=== PATIENT | female | born 1955 | race Caucasian/White ===

== ENCOUNTER 2023-09-12 11:05 | Emergency (ER) | payer MEDICARE, BC ==
[~2023-09-12] VITALS: Ht 156.2 cm; Wt 127.3 kg
[2023-09-12] MEDS: ketorolac tromethamine 15mg/ml inj. IM ONE ×2 (11:28→12:20)
[2023-09-12] MEDS ORDERED: CYCL-1 PO (12:13)
[2023-09-12 12:24] VITALS: BP 147/69; PULSE 68; RESP 16; TEMP 98.6; O2SAT 98
== END 2023-09-12 12:29 | disposition home or self-care (01) ==
LOC: ER 11:06
DX: G89.29 Other chronic pain (principal); M54.2 Cervicalgia; M25.512 Pain in left shoulder; M79.602 Pain in left arm; Z88.2 Allergy status to sulfonamides
CPT/HCPCS: 72125; 96372; 99285; J1885

== ENCOUNTER 2024-01-23 13:16 | Outpatient (CLI) | payer MEDICARE, BC ==
[~2024-01-23 13:16] MED LIST: CYCL-1 PO
[2024-01-23 14:26] LABS: BASOPHILS # (AUTO) 0.1 X10'3 (0-0.2); BASOPHILS % (AUTO) 0.6 % (0-1); EOSINOPHILS # (AUTO) 0.4 X10'3 (0-0.9); EOSINOPHILS % (AUTO) 4.5 % (0-6); HEMATOCRIT 37.8 % (35.0-45.0); HEMOGLOBIN 12.3 g/dl (12.0-16.0); LYMPHOCYTES # (AUTO) 1.6 X10'3 (1.1-4.8); LYMPHOCYTES % (AUTO) 16.3 % (21-51); MEAN CORPUSCULAR HEMOGLOBIN 28.7 PG (27.0-31.0); MEAN CORPUSCULAR HGB CONC 32.5 g/dL (33.0-36.5); MEAN CORPUSCULAR VOLUME 88.6 FL (78-98); MEAN PLATELET VOLUME 11.3 FL (7.4-10.4); MONOCYTES # (AUTO) 0.4 X10'3 (0-0.9); MONOCYTES % (AUTO) 4.4 % (2-12); NEUTROPHILS # (AUTO) 7.3 X10'3 (1.8-7.7); NEUTROPHILS % (AUTO) 74.2 % (42-75); PLATELET COUNT 215 X10'3 (140-440); RED BLOOD COUNT 4.27 X10'6 (4.20-5.60); RED CELL DISTRIBUTION WIDTH 14.3 % (11.5-14.5); WHITE BLOOD COUNT 9.9 X10'3 (4.5-11.0)
[2024-01-23 14:31] LABS: APTT 30 SECONDS (22-32); PROTHROMBIN TIME 10.6 SECONDS (9.0-12.0)
[2024-01-23 14:32] LABS: ALBUMIN 3.8 G/DL (3.4-5.0); ANION GAP 5 (8-16); BLOOD UREA NITROGEN 17 MG/DL (7-18); BUN/CREATININE RATIO 12.1 (10.0-20.0); CALCIUM 9.4 MG/DL (8.5-10.1); CHLORIDE 103 MMOL/L (99-107); CHOL/HDL RATIO 2.2 (0.00-4.99); CHOLESTEROL 143 MG/DL (0-200); GLUCOSE 104 MG/DL (70-104); HDL CHOLESTEROL 64 MG/DL (35-60); LDL CHOLESTEROL 61 MG/DL (50-100); POTASSIUM 4.3 MMOL/L (3.5-5.1); SODIUM 138 MMOL/L (135-145); TRIGLYCERIDES 87 MG/DL (20-135); eGFR 37 ML/MIN
== END 2024-01-23 23:59 | disposition home or self-care (01) ==
LOC: RAD 13:16
PROVIDERS: ATTEND Internal Medicine Interventional Cardiology
DX: E78.5 Hyperlipidemia, unspecified (principal); R06.02 Shortness of breath; I10 Essential (primary) hypertension
CPT/HCPCS: 80048; 80061; 85025; 85610; 85730

== ENCOUNTER 2024-01-27 12:12 | Day surgery (SDC) | payer MEDICARE, BC ==
[2024-01-27] VITALS (8 sets, daily range): BP systolic 97–110; BP diastolic 47–72; PULSE 72–83; RESP 10–15; TEMP 98.4; O2SAT 95–98
[~2024-01-27] VITALS: Ht 154.9 cm; Wt 115.8 kg
[2024-01-27] MEDS ORDERED: CHLO25TA10 PO (13:33)
[2024-01-27] MEDS ORDERED: LISI40TA13 PO (13:33)
[2024-01-27] MEDS ORDERED: LEVO137T2 PO (13:33)
[2024-01-27] MEDS ORDERED: ROSU20TA98 PO (13:33)
[2024-01-27] MEDS ORDERED: PIOG45TA65 PO (13:33)
[2024-01-27] MEDS ORDERED: EMPA25TA PO (13:33)
[2024-01-27] MEDS ORDERED: TRAZ-251 PO (13:33)
[2024-01-27] MEDS ORDERED: ONDA-243 PO (13:33)
[2024-01-27] MEDS ORDERED: TIRZ5PEN (13:33)
[2024-01-27] MEDS: LORazepam 0.5 MG tablet PO PRN (13:41)
[2024-01-27] MEDS: diphenhydrAMINE 25mg capsule PO PRN (13:41)
[2024-01-27] MEDS: normal saline 1,000 ML IV SCH (13:42)
[2024-01-27] MEDS ORDERED: verapamil 2.5 mg/ml inj IV ONE (14:56)
[2024-01-27] MEDS ORDERED: heparin 1,000unit/ml 10ml vial 10 ML ONE (14:56)
[2024-01-27] MEDS ORDERED: LIDOcaine 1% (10mg/ml) 2ml vial ONE ×2 (14:56→15:20)
[2024-01-27] MEDS ORDERED: midazolam 1 mg/ML 2ml injection ONE (14:56)
[2024-01-27] MEDS ORDERED: fentaNYL/PF 50MCG/1 ML 2ML syringe ONE (14:56)
[2024-01-27] MEDS ORDERED: iohexol 350MG/ML 100ml bottle IV ONE (14:56)
[2024-01-27] MEDS ORDERED: nitroGLYCERIN 500mcg/5mL D5W 5 ML IV ONE (15:06)
[2024-01-27] MEDS ORDERED: LIDOcaine 1% 30ml preserv. free vial ONE (15:27)
[2024-01-27] MEDS ORDERED: iohexol 350 MG/ML 50ML vial IV ONE (15:43)
[2024-01-27 15:46] LABS: ISTAT HGB MIX 10.9 g/dl (12.0-16.0); ISTAT Hct MIX 32 %PCV (35-45); ISTAT O2 SATURATION MIX VENOUS 70 % (60-80); ISTAT SOURCE VEN
[2024-01-27] MEDS ORDERED: HYDROcodone/acetaminophen 5mg/325mg tablet PO PRN (16:45)
[2024-01-27] MEDS ORDERED: HYDROcodone/acetaminophen 10/325mg tab PO PRN (16:45)
== END 2024-01-27 18:05 | disposition home or self-care (01) ==
LOC: SSTAY O 12:12
PROVIDERS: ATTEND Student in an Organized Health Care Education/Training Program
DX: I35.0 Nonrheumatic aortic (valve) stenosis (principal); I10 Essential (primary) hypertension; E11.9 Type 2 diabetes mellitus without complications; E78.00 Pure hypercholesterolemia, unspecified; E66.9 Obesity, unspecified; Z68.42 Body mass index [BMI] 45.0-49.9, adult; Z88.2 Allergy status to sulfonamides; Z88.5 Allergy status to narcotic agent; Z88.8 Allergy status to other drugs, medicaments and biological substances
CPT/HCPCS: 82803; 82948; 85014; 93005; 93456; 99152; 99153; A6258; A6402; C1751; C1769; C1894; J1644; J2003; J2250; J3010; J3490; J7030; Q0163; Q9967; Z7610

== ENCOUNTER 2024-01-28 14:12 | Emergency (ER) | payer MEDICARE, BC ==
[~2024-01-28 14:12] MED LIST changes: +CHLO25TA10 PO; -CYCL-1 PO; +EMPA25TA PO; +LEVO137T2 PO; +LISI40TA13 PO; +ONDA-243 PO; +PIOG45TA65 PO; +ROSU20TA73 PO; +TIRZ5PEN; +TRAZ-251 PO
[2024-01-28 14:15] VITALS: BP 146/60; PULSE 79; TEMP 97.2; O2SAT 96
[2024-01-28 15:27] VITALS: RESP 16
== END 2024-01-28 15:28 | disposition home or self-care (01) ==
LOC: ER 14:13
DX: R20.2 Paresthesia of skin (principal); Z88.2 Allergy status to sulfonamides; Z88.5 Allergy status to narcotic agent; Z79.899 Other long term (current) drug therapy
CPT/HCPCS: 99281

== ENCOUNTER 2024-02-12 10:33 | Outpatient (CLI) | payer MEDICARE, BC ==
[~2024-02-12 10:33] MED LIST changes: +IODIXANOL 320 MG/ML INFUS..BTL 100ML IV ONE; -ROSU20TA73 PO; +ROSU20TA98 PO
[2024-02-12 11:06] LABS: BASOPHILS # (AUTO) 0.1 X10'3 (0-0.2); EOSINOPHILS # (AUTO) 0.5 X10'3 (0-0.9); EOSINOPHILS % (AUTO) 6.6 % (0-6); HEMATOCRIT 34.5 % (35.0-45.0); HEMOGLOBIN 11.4 g/dl (12.0-16.0); LYMPHOCYTES # (AUTO) 1.7 X10'3 (1.1-4.8); LYMPHOCYTES % (AUTO) 22.5 % (21-51); MEAN CORPUSCULAR VOLUME 87.9 FL (78-98); MEAN PLATELET VOLUME 10.7 FL (7.4-10.4); MONOCYTES # (AUTO) 0.4 X10'3 (0-0.9); MONOCYTES % (AUTO) 4.6 % (2-12); NEUTROPHILS % (AUTO) 65.3 % (42-75); PLATELET COUNT 188 X10'3 (140-440); RED BLOOD COUNT 3.92 X10'6 (4.20-5.60); RED CELL DISTRIBUTION WIDTH 14.3 % (11.5-14.5); WHITE BLOOD COUNT 7.7 X10'3 (4.5-11.0)
[2024-02-12 11:13] LABS: APTT 30 SECONDS (22-32); PROTHROMBIN TIME 10.7 SECONDS (9.0-12.0)
[2024-02-12 11:16] LABS: ALANINE AMINOTRANSFERASE 15 U/L (12-78); ALBUMIN 3.4 G/DL (3.4-5.0); ALKALINE PHOSPHATASE 70 IU/L (46-116); ANION GAP 9 (8-16); ASPARTATE AMINO TRANSFERASE 11 U/L (10-37); BILIRUBIN,TOTAL 0.6 MG/DL (0.1-1.0); BLOOD UREA NITROGEN 30 MG/DL (7-18); CALCIUM 9.4 MG/DL (8.5-10.1); CHLORIDE 107 MMOL/L (99-107); CREATININE 1.43 MG/DL (0.40-0.90); GLUCOSE 88 MG/DL (70-104); POTASSIUM 4.2 MMOL/L (3.5-5.1); SODIUM 142 MMOL/L (135-145); TOTAL CARBON DIOXIDE 26.5 MMOL/L (24-32); TOTAL PROTEIN 6.9 G/DL (6.4-8.2); eGFR 36 ML/MIN
[2024-02-12 11:22] LABS: PRO BRAIN NATRIURETIC PEPTIDE 480 PG/ML (0-125)
[2024-02-12 11:47] LABS: LARGE PLATELETS FEW; PLATELET ESTIMATE NORMAL
== END 2024-02-12 23:59 | disposition home or self-care (01) ==
LOC: RAD 10:33
PROVIDERS: ATTEND Internal Medicine Cardiovascular Disease
DX: I70.0 Atherosclerosis of aorta (principal); K80.20 Calculus of gallbladder without cholecystitis without obstruction; K42.9 Umbilical hernia without obstruction or gangrene; M47.814 Spondylosis without myelopathy or radiculopathy, thoracic region; I35.0 Nonrheumatic aortic (valve) stenosis; R06.02 Shortness of breath; I65.29 Occlusion and stenosis of unspecified carotid artery
CPT/HCPCS: 36415; 71046; 71275; 74174; 75572; 80053; 83880; 85008; 85025; 85610; 85730; Q9967

== ENCOUNTER 2024-04-21 08:30 | Inpatient (IN) | payer MEDICARE, BC ==
[2024-04-16 13:40] LABS: BILIRUBIN,URINE NEGATIVE (Neg); CLARITY,URINE CLEAR (Clear); COLOR,URINE YELLOW (Yellow); GLUCOSE, URINE >=1000 mg/dl (Neg); KETONES,URINE NEGATIVE (Neg); LEUKOCYTE ESTERASE ,URINE NEGATIVE (Neg); NITRITES, URINE NEGATIVE (Neg); OCCULT BLOOD,URINE NEGATIVE (Neg); PROTEIN,URINE NEGATIVE (Neg); UROBILINOGEN,URINE 0.2 E.U/dL (0.2-1.0)
[2024-04-16 13:42] LABS: UA COLLECTION TYPE CLN CATCH MIDSTREAM
[2024-04-16 13:43] LABS: BASOPHILS # (AUTO) 0.1 X10'3 (0-0.2); BASOPHILS % (AUTO) 0.7 % (0-1); EOSINOPHILS # (AUTO) 0.5 X10'3 (0-0.9); EOSINOPHILS % (AUTO) 5.6 % (0-6); LYMPHOCYTES # (AUTO) 1.5 X10'3 (1.1-4.8); LYMPHOCYTES % (AUTO) 17.1 % (21-51); MEAN CORPUSCULAR HEMOGLOBIN 28.3 PG (27.0-31.0); MEAN CORPUSCULAR HGB CONC 32.8 g/dL (33.0-36.5); MEAN CORPUSCULAR VOLUME 86.3 FL (78-98); MEAN PLATELET VOLUME 10.7 FL (7.4-10.4); MONOCYTES # (AUTO) 0.5 X10'3 (0-0.9); MONOCYTES % (AUTO) 5.2 % (2-12); NEUTROPHILS # (AUTO) 6.4 X10'3 (1.8-7.7); NEUTROPHILS % (AUTO) 71.4 % (42-75); PRE OP HEMATOCRIT 36.7 % (35.0-45.0); PRE OP PLATELET COUNT 194 X10'3 (140-440); PRE OP WHITE BLOOD COUNT 8.9 10'3 (4.8-10.8); RED BLOOD COUNT 4.26 X10'6 (4.20-5.60)
[2024-04-16 13:45] LABS: PRE OP PROTIME 10.9 SECONDS (9.0-12.0)
[2024-04-16 13:50] LABS: BACTERIA,URINE FEW /HPF (Neg); MUCUS STRANDS NONE SEEN /LPF (Neg); RBC,URINE NONE SEEN /HPF (0-2); SQUAMOUS EPITHELIAL CELL,UR FEW /LPF (FEW); WBC,URINE 0-4 /HPF (0-4)
[2024-04-16 13:51] VITALS: PULSE 78; RESP 16; O2SAT 97
[2024-04-16 13:54] LABS: HEMOGLOBIN A1C 5.7 % (4.5-6.2)
[2024-04-16 13:58] LABS: ALBUMIN 4.2 G/DL (3.4-5.0); ALBUMIN/GLOBULIN RATIO 1.2 (1.1-1.5); ALKALINE PHOSPHATASE 92 IU/L (46-116); BLOOD UREA NITROGEN 23 MG/DL (7-18); BUN/CREATININE RATIO 15.4 (10.0-20.0); CALCIUM 9.7 MG/DL (8.5-10.1); CHLORIDE 104 MMOL/L (99-107); CREATININE 1.49 MG/DL (0.40-0.90); PRE OP ALT 21 U/L (30-65); PRE OP ANION GAP 9 (8-16); PRE OP AST 15 U/L (10-37); PRE OP BILIRUB, TOTAL 0.7 MG/DL (0.0-1.0); PRE OP GLUCOSE 100 MG/DL (70-104); PRE OP POTASSIUM 4.5 MMOL/L (3.4-5.1); PRE OP SODIUM 142 MMOL/L (135-145); THYROID STIMULATING HORMONE 0.08 ulU/ml (0.34-4.50); TOTAL CARBON DIOXIDE 29.4 MMOL/L (24-32); TOTAL PROTEIN 7.7 G/DL (6.4-8.2); eGFR 34 ML/MIN
[2024-04-16 15:01] LABS: LARGE PLATELETS FEW; PLATELET ESTIMATE NORMAL
[2024-04-16 15:02] LABS: ANISOCYTOSIS 1+; ELLIPTOCYTES FEW; TEAR DROP CELLS FEW
[2024-04-19 08:27] LABS: ABG BASE EXCESS 1.2 mmol/L (-2.0-3.0); ABG HCO3 24.8 mmol/L (21.0-28.0); ABG OXYGEN SATURATION 97.2 % (94.0-98.0); ABG PCO2 (T) 36.3 mmHg (32.0-45.0); ABG PH (T) 7.453 (7.350-7.450); ABG PO2 (T) 91.6 mmHg (83.0-108.0); ALLEN'S TEST POSITIVE; FCOHb 0.3 % (0.5-1.5); FHHb 2.8 % (0.0-5.0); FO2Hb 96.9 % (94.0-98.0); MODE ROOM AIR; TOTAL HEMOGLOBIN 12.9 G/dl (12.0-16.0)
[~2024-04-21] VITALS: Ht 157.5 cm; Wt 118.0 kg
[2024-04-21] VITALS (10 sets, daily range): BP systolic 104–142; BP diastolic 42–62; PULSE 60–91; RESP 10–15; TEMP 98.6; O2SAT 95–99
[~2024-04-21 08:30] MED LIST changes: -EMPA25TA PO; -IODIXANOL 320 MG/ML INFUS..BTL 100ML IV ONE; +MIRT-87 PO; -ONDA-243 PO; -TIRZ5PEN; +celeCOXIB 100mg capsule PO ONE; +dextrose 50%-water 50ml dispensing syringe IV PRN; +insulin glargine (Lantus) pen - multi-dose SQ PRN
[2024-04-21] MEDS: ceFAZolin 2gm in dextrose, iso 50 ML IV ONE (10:26)
[2024-04-21] MEDS: ringers solution, lacted 1,000 ML IV SCH (11:20)
[2024-04-21] MEDS: metoprolol tartrate 12.5mg (1/2 tablet) PO ONE (11:20)
[2024-04-21] MEDS: mupirocin 2% nasal ointment 1gm UD NS ONE (11:20)
[2024-04-21] MEDS: VANCOMYCIN/H2O 1.5g/300mL PB 300 ML IV ONE (11:20)
[2024-04-21] MEDS: Insulin Reg/NS 100units/100mL 100 ML IV SCH ×2 (11:20→20:10)
[2024-04-21] MEDS: famotidine 20mg tablet PO ONE (11:21)
[2024-04-21] MEDS ORDERED: ceFAZolin 1000mg inj ONE (16:16)
[2024-04-21] MEDS ORDERED: vancomycin 1,000mg inj ONE (16:16)
[2024-04-21] MEDS ORDERED: BUPIVAcaine 0.5% inj/PF 30 ML ONE (16:16)
[2024-04-21] MEDS ORDERED: LORazepam 2 mg/ml vial ONE (16:17)
[2024-04-21] MEDS ORDERED: epiNEPHrine 1 mg/ml inj ONE (16:22)
[2024-04-21] MEDS: LORazepam 2 mg/ml vial IV ONE (16:38)
[2024-04-21] MEDS ORDERED: SUfentanil 50mcg/ml 1ml amp IV ONE (16:38)
[2024-04-21] MEDS ORDERED: rocuronium 10mg/ml inj IV ONE (16:40)
[2024-04-21] MEDS ORDERED: isoflurane 100ml inhalation liquid IH ONE (16:40)
[2024-04-21] MEDS ORDERED: propofol inj 20 ML IV ONE (16:40)
[2024-04-21] MEDS ORDERED: LIDOcaine 1%/PF 5ML 10 MG/ML VIAL ONE (16:40)
[2024-04-21] MEDS ORDERED: potassium Cl 2 mEq/ml inj IV ONE (17:00)
[2024-04-21 17:26] LABS: ABG BASE EXCESS 1.6 mmol/L (-2.0-3.0); ABG HCO3 24.4 mmol/L (21.0-28.0); ABG OXYGEN SATURATION 99.2 % (94.0-98.0); ABG PCO2 32.3 mmHg (32.0-45.0); ABG PH 7.496 (7.350-7.450); ABG PO2 236.1 mmHg (83.0-108.0); CL (ABG) 105 mmol/L (98-107); FCOHb 0.3 % (0.5-1.5); FHHb 0.8 % (0.0-5.0); FMetHb 0.2 % (0.0-1.5); FO2Hb 98.7 % (94.0-98.0); GLUCOSE (ABG) 80 mg/dl (65-95); IONIZED CA (ABG) 1.18 mmol/L (1.15-1.33); K (ABG) 4.2 mmol/L (3.40-4.50); TOTAL HEMOGLOBIN 11.4 G/dl (12.0-16.0)
[2024-04-21] MEDS: ceFAZolin 1000mg inj IR ONE (17:36)
[2024-04-21 17:48] LABS: ABG BASE EXCESS -1.4 mmol/L (-2.0-3.0); ABG HCO3 24.5 mmol/L (21.0-28.0); ABG OXYGEN SATURATION 99.2 % (94.0-98.0); ABG PCO2 46.4 mmHg (32.0-45.0); CL (ABG) 104 mmol/L (98-107); FCOHb 0.3 % (0.5-1.5); FHHb 0.8 % (0.0-5.0); FO2Hb 98.9 % (94.0-98.0); GLUCOSE (ABG) 89 mg/dl (65-95); IONIZED CA (ABG) 1.19 mmol/L (1.15-1.33); K (ABG) 4.2 mmol/L (3.40-4.50); TOTAL HEMOGLOBIN 10.5 G/dl (12.0-16.0)
[2024-04-21 18:01] LABS: ABG BASE EXCESS VENOUS -0.5 mmol/L (-2.0-3.0); ABG HCO3 VENOUS 24.4 mmol/L (22.0-29.0); ABG OXYGEN SATURATION VENOUS 81.3 % (60.0-85.0); ABG PCO2 VENOUS 41.1 mmHg (38.0-54.0); ABG PH (VENOUS) 7.392 (7.320-7.430); ABG PO2 VENOUS 44.4 mmHg (23.0-48.0); CL (ABG) 102 mmol/L (98-107); FCOHb VENOUS 0.2 % (0.5-1.5); FHHb VENOUS 18.6 %; FMetHb VENOUS 0.1 % (0.5-1.5); FO2Hb VENOUS 81.1 % (0-80.0); GLUCOSE (ABG) 89 mg/dl (65-95); IONIZED CA (ABG) 1.07 mmol/L (1.15-1.33); K (ABG) 4.6 mmol/L (3.40-4.50); TOTAL HEMOGLOBIN 7.7 G/dl (12.0-16.0)
[2024-04-21 18:06] LABS: ABG BASE EXCESS -0.3 mmol/L (-2.0-3.0); ABG HCO3 24.5 mmol/L (21.0-28.0); ABG OXYGEN SATURATION 99.6 % (94.0-98.0); ABG PCO2 41.2 mmHg (32.0-45.0); ABG PH 7.393 (7.350-7.450); CL (ABG) 103 mmol/L (98-107); FCOHb 0.2 % (0.5-1.5); FHHb 0.4 % (0.0-5.0); FO2Hb 99.4 % (94.0-98.0); GLUCOSE (ABG) 87 mg/dl (65-95); K (ABG) 4.7 mmol/L (3.40-4.50); TOTAL HEMOGLOBIN 7.8 G/dl (12.0-16.0)
[2024-04-21 18:29] LABS: ABG BASE EXCESS -1.7 mmol/L (-2.0-3.0); ABG HCO3 24.2 mmol/L (21.0-28.0); ABG OXYGEN SATURATION 99.5 % (94.0-98.0); ABG PCO2 46.5 mmHg (32.0-45.0); ABG PH 7.334 (7.350-7.450); CL (ABG) 100 mmol/L (98-107); FCOHb 0.3 % (0.5-1.5); FHHb 0.5 % (0.0-5.0); FMetHb 0.3 % (0.0-1.5); FO2Hb 98.9 % (94.0-98.0); GLUCOSE (ABG) 128 mg/dl (65-95); IONIZED CA (ABG) 1.11 mmol/L (1.15-1.33); K (ABG) 4.9 mmol/L (3.40-4.50); TOTAL HEMOGLOBIN 9.5 G/dl (12.0-16.0)
[2024-04-21] MEDS ORDERED: albuterol 2.5 MG/3 ML nebule NEB PRN (18:30)
[2024-04-21 18:45] LABS: ABG BASE EXCESS -0.2 mmol/L (-2.0-3.0); ABG HCO3 24.8 mmol/L (21.0-28.0); ABG OXYGEN SATURATION 99.7 % (94.0-98.0); ABG PCO2 42.1 mmHg (32.0-45.0); ABG PH 7.388 (7.350-7.450); CL (ABG) 101 mmol/L (98-107); FCOHb 0.2 % (0.5-1.5); FHHb 0.3 % (0.0-5.0); FMetHb 0.3 % (0.0-1.5); FO2Hb 99.2 % (94.0-98.0); GLUCOSE (ABG) 156 mg/dl (65-95); IONIZED CA (ABG) 1.12 mmol/L (1.15-1.33); K (ABG) 4.9 mmol/L (3.40-4.50); TOTAL HEMOGLOBIN 9.2 G/dl (12.0-16.0)
[2024-04-21 18:59] LABS: ABG BASE EXCESS -1.2 mmol/L (-2.0-3.0); ABG HCO3 22.9 mmol/L (21.0-28.0); ABG OXYGEN SATURATION 99.3 % (94.0-98.0); ABG PCO2 35.7 mmHg (32.0-45.0); ABG PH 7.425 (7.350-7.450); ABG PO2 202.9 mmHg (83.0-108.0); CL (ABG) 102 mmol/L (98-107); FHHb 0.7 % (0.0-5.0); FO2Hb 99.3 % (94.0-98.0); GLUCOSE (ABG) 146 mg/dl (65-95); IONIZED CA (ABG) 1.29 mmol/L (1.15-1.33); K (ABG) 4.5 mmol/L (3.40-4.50); TOTAL HEMOGLOBIN 9.3 G/dl (12.0-16.0)
[2024-04-21 19:03] LABS: ACTIVATED CLOTTING TIME 129 SEC (101-148)
[2024-04-21] MEDS ORDERED: dextrose 50%-water 50ml dispensing syringe IV PRN (19:25)
[2024-04-21] MEDS ORDERED: mineral oil 133ml enema RC PRN (19:25)
[2024-04-21] MEDS ORDERED: Neutra Phos packet PO PRN (19:25)
[2024-04-21] MEDS ORDERED: sodium phosphate inj. 30 MMOL in dextrose 5%-water 250 ML IV PRN (19:25)
[2024-04-21] MEDS ORDERED: insulin glargine (Lantus) pen - multi-dose SQ PRN (19:25)
[2024-04-21] MEDS ORDERED: metoclopramide 5 mg/ml inj IV PRN (19:25)
[2024-04-21] MEDS ORDERED: bisacodyl 10mg suppository rectal RC PRN (19:25)
[2024-04-21] MEDS ORDERED: magnesium hydroxide 30ml (MOM) UD suspension PO PRN (19:25)
[2024-04-21] MEDS ORDERED: acetaminophen 325mg tablet PO PRN ×2 (19:25)
[2024-04-21] MEDS ORDERED: nitroGLYCERIN-Tridil 50MG/D5W 250 ML IV PRN (19:25)
[2024-04-21] MEDS ORDERED: potassium Cl 40MEQ/270ML bag 250 ML IV PRN (19:25)
[2024-04-21] MEDS ORDERED: potassium CL 10mEq/100ml bag 100 ML IV PRN (19:25)
[2024-04-21] MEDS ORDERED: potassium Cl 20 mEq SR tablet PO PRN (19:25)
[2024-04-21] MEDS ORDERED: ondansetron/PF 4mg/2ml inj IV PRN (19:25)
[2024-04-21] MEDS ORDERED: niCARDipine-NS 40mg/200ml IVPB 200 ML IV PRN (19:25)
[2024-04-21] MEDS ORDERED: sodium phosphate inj. 15 MMOL in dextrose 5%-water 250 ML IV PRN (19:25)
[2024-04-21] MEDS ORDERED: magnesium sulf-water 4G/100mL 100 ML IV PRN (19:25)
[2024-04-21] MEDS ORDERED: potassium Cl 40MEQ/1/2NS 520ml 520 ML IV PRN (19:25)
[2024-04-21] MEDS ORDERED: HYDROcodone/acetaminophen 10/325mg tab PO PRN (19:25)
[2024-04-21] MEDS: morphine 2 MG/ML inj. syringe IV PRN (19:41)
[2024-04-21 19:44] LABS: BASOPHILS # (AUTO) 0.1 X10'3 (0-0.2); BASOPHILS % (AUTO) 0.4 % (0-1); EOSINOPHILS # (AUTO) 0.4 X10'3 (0-0.9); EOSINOPHILS % (AUTO) 2.7 % (0-6); HEMATOCRIT 31.3 % (35.0-45.0); HEMOGLOBIN 10.3 g/dl (12.0-16.0); LYMPHOCYTES # (AUTO) 1.3 X10'3 (1.1-4.8); LYMPHOCYTES % (AUTO) 9.3 % (21-51); MEAN CORPUSCULAR HEMOGLOBIN 28.4 PG (27.0-31.0); MEAN CORPUSCULAR HGB CONC 33.1 g/dL (33.0-36.5); MEAN PLATELET VOLUME 10.7 FL (7.4-10.4); MONOCYTES # (AUTO) 0.3 X10'3 (0-0.9); MONOCYTES % (AUTO) 2.4 % (2-12); NEUTROPHILS # (AUTO) 11.8 X10'3 (1.8-7.7); NEUTROPHILS % (AUTO) 85.2 % (42-75); PLATELET COUNT 95 X10'3 (140-440); RED BLOOD COUNT 3.64 X10'6 (4.20-5.60); RED CELL DISTRIBUTION WIDTH 15.7 % (11.5-14.5); WHITE BLOOD COUNT 13.8 X10'3 (4.5-11.0)
[2024-04-21] MEDS ORDERED: VANCOMYCIN 1GM 200ML H20 (PEG) 200 ML IV SCH (20:00)
[2024-04-21] MEDS: sennosides/docusate sodium tablet PO SCH (20:00)
[2024-04-21 20:04] LABS: APTT 33 SECONDS (22-32); INR 1.3 INR
[2024-04-21 20:05] LABS: ABG BASE EXCESS -1.5 mmol/L (-2.0-3.0); ABG HCO3 22.4 mmol/L (21.0-28.0); ABG OXYGEN SATURATION 99.2 % (94.0-98.0); ABG PCO2 (T) 34.4 mmHg (32.0-45.0); ABG PH (T) 7.429 (7.350-7.450); ABG PO2 (T) 146.6 mmHg (83.0-108.0); FCOHb 0.1 % (0.5-1.5); FHHb 0.8 % (0.0-5.0); FO2Hb 99.1 % (94.0-98.0); MODE VENT - SIMV; PATIENT TEMPERATURE 36.5; PEEP 5 cm H2O; RESPIRATORY RATE 14 b/min; TIDAL VOLUME 550 mL; TOTAL HEMOGLOBIN 11.5 G/dl (12.0-16.0)
[2024-04-21] MEDS: sodium chloride 0.45% 1,000 ML IV SCH (20:07)
[2024-04-21 20:10] LABS: ALANINE AMINOTRANSFERASE 15 U/L (12-78); ALBUMIN 2.9 G/DL (3.4-5.0); ALBUMIN/GLOBULIN RATIO 1.3 (1.1-1.5); ALKALINE PHOSPHATASE 57 IU/L (46-116); ANION GAP 7 (8-16); ASPARTATE AMINO TRANSFERASE 26 U/L (10-37); BILIRUBIN,TOTAL 0.6 MG/DL (0.1-1.0); BLOOD UREA NITROGEN 29 MG/DL (7-18); CALCIUM 8.6 MG/DL (8.5-10.1); CHLORIDE 107 MMOL/L (99-107); CREATININE 1.38 MG/DL (0.40-0.90); GLUCOSE 118 MG/DL (70-104); MAGNESIUM 2.2 MG/DL (1.5-2.4); PHOSPHORUS 2.6 MG/DL (2.3-4.5); POTASSIUM 4.1 MMOL/L (3.5-5.1); SODIUM 139 MMOL/L (135-145); TOTAL CARBON DIOXIDE 25.2 MMOL/L (24-32); TOTAL PROTEIN 5.2 G/DL (6.4-8.2); eCRCL 30 ML/MIN; eGFR 38 ML/MIN
[2024-04-21] MEDS: mupirocin 2% nasal ointment 1gm UD NS SCH (20:10)
[2024-04-21] MEDS: atorvastatin 10mg tablet PO SCH (21:00)
[2024-04-21] MEDS: mirtazapine 15mg tablet PO SCH (21:00)
[2024-04-21] MEDS: traZODone 50mg tablet PO SCH (21:00)
[2024-04-21] MEDS: morphine 4 MG/ML inj SYRINge IV PRN (21:06)
[2024-04-21] MEDS: magnesium sulf-water 2g/50mL 50 ML IV PRN (21:26)
[2024-04-21] MEDS: albumin (Human) 5% 250ml 250 ML IV PRN (22:13)
[2024-04-21] MEDS: potassium Cl 20mEq/100mL bag 100 ML IV PRN (23:00)
[2024-04-22] VITALS (29 sets, daily range): BP systolic 95–129; BP diastolic 30–54; PULSE 62–76; RESP 9–19; O2SAT 92–98
[2024-04-22] MEDS: ceFAZolin/D5W- 1GM premix 50 ML IV SCH (00:08)
[2024-04-22 02:20] LABS: BASOPHILS % (AUTO) 0.1 % (0-1); EOSINOPHILS % (AUTO) 0 % (0-6); HEMATOCRIT 31.7 % (35.0-45.0); HEMOGLOBIN 10.3 g/dl (12.0-16.0); LYMPHOCYTES # (AUTO) 0.3 X10'3 (1.1-4.8); LYMPHOCYTES % (AUTO) 1.3 % (21-51); MEAN CORPUSCULAR HGB CONC 32.4 g/dL (33.0-36.5); MEAN CORPUSCULAR VOLUME 86.4 FL (78-98); MONOCYTES # (AUTO) 0.3 X10'3 (0-0.9); MONOCYTES % (AUTO) 1.7 % (2-12); NEUTROPHILS # (AUTO) 19.5 X10'3 (1.8-7.7); NEUTROPHILS % (AUTO) 96.9 % (42-75); PLATELET COUNT 120 X10'3 (140-440); RED BLOOD COUNT 3.67 X10'6 (4.20-5.60); WHITE BLOOD COUNT 20.1 X10'3 (4.5-11.0)
[2024-04-22 03:03] LABS: ALANINE AMINOTRANSFERASE 17 U/L (12-78); ALBUMIN 3.5 G/DL (3.4-5.0); ALBUMIN/GLOBULIN RATIO 1.4 (1.1-1.5); ALKALINE PHOSPHATASE 61 IU/L (46-116); ANION GAP 10 (8-16); ASPARTATE AMINO TRANSFERASE 31 U/L (10-37); BILIRUBIN,TOTAL 0.6 MG/DL (0.1-1.0); BLOOD UREA NITROGEN 32 MG/DL (7-18); CALCIUM 8.8 MG/DL (8.5-10.1); CHLORIDE 107 MMOL/L (99-107); CREATININE 1.68 MG/DL (0.40-0.90); GLUCOSE 159 MG/DL (70-104); MAGNESIUM 2.9 MG/DL (1.5-2.4); PHOSPHORUS 3.2 MG/DL (2.3-4.5); SODIUM 140 MMOL/L (135-145); TOTAL CARBON DIOXIDE 23.4 MMOL/L (24-32); eCRCL 24 ML/MIN; eGFR 30 ML/MIN
[2024-04-22 04:00] LABS: ABG BASE EXCESS -5.2 mmol/L (-2.0-3.0); ABG HCO3 20.9 mmol/L (21.0-28.0); ABG OXYGEN SATURATION 96.1 % (94.0-98.0); ABG PCO2 (T) 43.4 mmHg (32.0-45.0); ABG PH (T) 7.302 (7.350-7.450); ABG PO2 (T) 90.3 mmHg (83.0-108.0); FCOHb 0.3 % (0.5-1.5); FHHb 3.9 % (0.0-5.0); FMetHb 0.3 % (0.0-1.5); FO2Hb 95.5 % (94.0-98.0); MODE VENT - CPAP; PATIENT TEMPERATURE 37.1; PEEP 5 cm H2O
[2024-04-22] MEDS: VANCOMYCIN 1GM 200ML H20 (PEG) 200 ML IV SCH (05:33)
[2024-04-22] MEDS: levoTHYROXINE 25mcg tablet PO SCH (07:00)
[2024-04-22] MEDS: levoTHYROXINE 112mcg tablet PO SCH (07:00)
[2024-04-22] MEDS: metoprolol tartrate 12.5mg (1/2 tablet) PO SCH (08:00)
[2024-04-22] MEDS: aspirin 81mg tab.chew PO SCH (08:22)
[2024-04-22 11:34] LABS: ABG PO2 386.5 mmHg (83.0-108.0)
[2024-04-22 11:35] LABS: ABG PO2 360.2 mmHg (83.0-108.0)
[2024-04-22 11:35] LABS: ABG PO2 368.7 mmHg (83.0-108.0)
[2024-04-22] MEDS: HYDROcodone/acetaminophen 10/325mg tab PO PRN (13:28)
[2024-04-22] MEDS: insulin glargine (Lantus) pen - multi-dose SQ ONE (14:22)
[2024-04-22] MEDS: heparin, porcine 5000 units/ml vial SQ SCH (16:05)
[2024-04-22] MEDS: NORepinephrine 8mg/ 250ml NS 250 ML IV PRN (17:18)
[2024-04-22] MEDS: INSULIN LISPRO 100 UNIT/ML INSULN.PEN MULTI-DOSE SQ SCH (17:19)
[2024-04-23] VITALS (23 sets, daily range): BP systolic 99–143; BP diastolic 39–65; PULSE 64–82; RESP 12–17; TEMP 96.8–97.8; O2SAT 96–99
[2024-04-23 02:14] LABS: BASOPHILS % (AUTO) 0 % (0-1); EOSINOPHILS % (AUTO) 0 % (0-6); HEMATOCRIT 24.5 % (35.0-45.0); LYMPHOCYTES # (AUTO) 0.4 X10'3 (1.1-4.8); LYMPHOCYTES % (AUTO) 1.9 % (21-51); MEAN CORPUSCULAR HEMOGLOBIN 28.3 PG (27.0-31.0); MEAN CORPUSCULAR HGB CONC 32.7 g/dL (33.0-36.5); MEAN CORPUSCULAR VOLUME 86.5 FL (78-98); MEAN PLATELET VOLUME 11.3 FL (7.4-10.4); MONOCYTES # (AUTO) 0.6 X10'3 (0-0.9); MONOCYTES % (AUTO) 3.2 % (2-12); NEUTROPHILS % (AUTO) 94.9 % (42-75); PLATELET COUNT 94 X10'3 (140-440); RED BLOOD COUNT 2.84 X10'6 (4.20-5.60); RED CELL DISTRIBUTION WIDTH 15.8 % (11.5-14.5)
[2024-04-23 02:22] LABS: ANION GAP 3 (8-16); BLOOD UREA NITROGEN 42 MG/DL (7-18); BUN/CREATININE RATIO 23.7 (10.0-20.0); CALCIUM 8.8 MG/DL (8.5-10.1); CHLORIDE 107 MMOL/L (99-107); CREATININE 1.77 MG/DL (0.40-0.90); GLUCOSE 180 MG/DL (70-104); MAGNESIUM 2.1 MG/DL (1.5-2.4); POTASSIUM 5.1 MMOL/L (3.5-5.1); SODIUM 137 MMOL/L (135-145); TOTAL CARBON DIOXIDE 27.4 MMOL/L (24-32); eCRCL 23 ML/MIN; eGFR 28 ML/MIN
[2024-04-23] MEDS ORDERED: magnesium sulf-water 2g/50mL 50 ML IV PRN (07:30)
[2024-04-23] MEDS ORDERED: magnesium sulf-water 4G/100mL 100 ML IV PRN (07:30)
[2024-04-23] MEDS ORDERED: potassium Cl 40MEQ/270ML bag 250 ML IV PRN (07:30)
[2024-04-23] MEDS ORDERED: potassium Cl 20mEq/100mL bag 100 ML IV PRN (07:30)
[2024-04-23] MEDS ORDERED: potassium CL 10mEq/100ml bag 100 ML IV PRN (07:30)
[2024-04-23] MEDS ORDERED: potassium Cl 40MEQ/1/2NS 520ml 520 ML IV PRN (07:30)
[2024-04-23] MEDS ORDERED: potassium Cl 20 mEq SR tablet PO PRN ×2 (07:30)
[2024-04-23] MEDS: pantoprazole 40mg Tablet.DR PO SCH (08:27)
[2024-04-23] MEDS: magnesium Cl slow-release 64mg tablet PO SCH (08:28)
[2024-04-23] MEDS: insulin glargine (Lantus) pen - multi-dose SQ SCH (08:30)
[2024-04-23] MEDS: furosemide 20 MG/2 ML vial IV ONE (11:46)
[2024-04-23] MEDS: JUVEN Smoothie Arginine/Glut./Ca2+Bmb (Juven 19.3pkt) 240ml cup PO SCH (17:30)
[2024-04-24] VITALS (8 sets, daily range): BP systolic 114–132; BP diastolic 47–56; PULSE 61–70; RESP 12–18; TEMP 96.7–97.4; O2SAT 94–99
[2024-04-24 06:30] LABS: BASOPHILS % (AUTO) 0 % (0-1); EOSINOPHILS % (AUTO) 0 % (0-6); HEMATOCRIT 24.3 % (35.0-45.0); HEMOGLOBIN 7.9 g/dl (12.0-16.0); LYMPHOCYTES # (AUTO) 0.6 X10'3 (1.1-4.8); LYMPHOCYTES % (AUTO) 4.1 % (21-51); MEAN CORPUSCULAR HEMOGLOBIN 28.2 PG (27.0-31.0); MEAN CORPUSCULAR HGB CONC 32.6 g/dL (33.0-36.5); MEAN CORPUSCULAR VOLUME 86.4 FL (78-98); MEAN PLATELET VOLUME 11.3 FL (7.4-10.4); MONOCYTES # (AUTO) 0.7 X10'3 (0-0.9); MONOCYTES % (AUTO) 5.1 % (2-12); NEUTROPHILS # (AUTO) 12.5 X10'3 (1.8-7.7); NEUTROPHILS % (AUTO) 90.8 % (42-75); PLATELET COUNT 88 X10'3 (140-440); RED BLOOD COUNT 2.81 X10'6 (4.20-5.60); WHITE BLOOD COUNT 13.8 X10'3 (4.5-11.0)
[2024-04-24 06:40] LABS: ANION GAP 5 (8-16); BLOOD UREA NITROGEN 51 MG/DL (7-18); CALCIUM 8.9 MG/DL (8.5-10.1); CHLORIDE 103 MMOL/L (99-107); GLUCOSE 145 MG/DL (70-104); MAGNESIUM 2.6 MG/DL (1.5-2.4); POTASSIUM 4.9 MMOL/L (3.5-5.1); SODIUM 136 MMOL/L (135-145); TOTAL CARBON DIOXIDE 27.9 MMOL/L (24-32); eCRCL 27 ML/MIN; eGFR 34 ML/MIN
[2024-04-24] MEDS: furosemide 20 MG/2 ML vial IV ONE (08:53)
[2024-04-25 02:00] VITALS: BP 123/55; PULSE 62; RESP 16; TEMP 96.9; O2SAT 92
[2024-04-25 06:00] VITALS: BP 135/56; PULSE 64; RESP 18; TEMP 97.3; O2SAT 93
[2024-04-25 06:19] LABS: BASOPHILS % (AUTO) 0.1 % (0-1); EOSINOPHILS # (AUTO) 0.1 X10'3 (0-0.9); EOSINOPHILS % (AUTO) 1.4 % (0-6); HEMATOCRIT 24.5 % (35.0-45.0); HEMOGLOBIN 8.3 g/dl (12.0-16.0); LYMPHOCYTES % (AUTO) 10.6 % (21-51); MEAN CORPUSCULAR HEMOGLOBIN 28.8 PG (27.0-31.0); MEAN CORPUSCULAR HGB CONC 33.7 g/dL (33.0-36.5); MEAN CORPUSCULAR VOLUME 85.4 FL (78-98); MEAN PLATELET VOLUME 11.4 FL (7.4-10.4); MONOCYTES # (AUTO) 0.6 X10'3 (0-0.9); MONOCYTES % (AUTO) 6.6 % (2-12); NEUTROPHILS # (AUTO) 7.7 X10'3 (1.8-7.7); NEUTROPHILS % (AUTO) 81.3 % (42-75); PLATELET COUNT 102 X10'3 (140-440); RED BLOOD COUNT 2.87 X10'6 (4.20-5.60); RED CELL DISTRIBUTION WIDTH 15.9 % (11.5-14.5); WHITE BLOOD COUNT 9.5 X10'3 (4.5-11.0)
[2024-04-25 06:48] LABS: ALBUMIN 2.9 G/DL (3.4-5.0); ANION GAP 5 (8-16); BLOOD UREA NITROGEN 46 MG/DL (7-18); CALCIUM 9.2 MG/DL (8.5-10.1); CHLORIDE 108 MMOL/L (99-107); CREATININE 1.07 MG/DL (0.40-0.90); GLUCOSE 108 MG/DL (70-104); MAGNESIUM 2.3 MG/DL (1.5-2.4); POTASSIUM 4.7 MMOL/L (3.5-5.1); SODIUM 143 MMOL/L (135-145); TOTAL CARBON DIOXIDE 30.4 MMOL/L (24-32); eCRCL 38 ML/MIN; eGFR 51 ML/MIN
[2024-04-25 08:00] VITALS: RESP 74; O2SAT 96
[2024-04-25 08:11] LABS: ANISOCYTOSIS 1+; HYPOCHROMASIA 1+; LARGE PLATELETS FEW; PLATELET ESTIMATE DECREASED; POLYCHROMASIA FEW
[2024-04-25 11:00] VITALS: BP 130/49; PULSE 74; RESP 12; TEMP 97.5; O2SAT 96
[2024-04-25] MEDS ORDERED: HYDR-3972 PO (11:05)
[2024-04-25] MEDS ORDERED: LOP12.5T PO (11:05)
[2024-04-25] MEDS ORDERED: ASPI81TA53 PO (11:05)
[2024-04-25] MEDS ORDERED: enoxaparin 40mg/0.4ml syringe SUBCUT SCH (20:00)
== END 2024-04-25 12:15 | disposition home or self-care (01) | DRG 219 ==
LOC: PAS IN 09:51 → CICU 2S 19:07 → PCU 3S 04-23 15:44
PROVIDERS: ADMIT Thoracic Surgery (Cardiothoracic Vascular Surgery); ATTEND Thoracic Surgery (Cardiothoracic Vascular Surgery)
PROC: 5A1221Z Performance of Cardiac Output, Continuous (ICD-10-PCS; 2024-04-21)
PROC: B24BZZ4 Ultrasonography of Heart with Aorta, Transesophageal (ICD-10-PCS; 2024-04-21)
PROC: 5A1223Z Performance of Cardiac Pacing, Continuous (ICD-10-PCS; 2024-04-21)
PROC: 02RF08Z Replacement of Aortic Valve with Zooplastic Tissue, Open Approach (ICD-10-PCS; principal; 2024-04-21 16:40)
DX: I35.0 Nonrheumatic aortic (valve) stenosis (principal); N17.0 Acute kidney failure with tubular necrosis; Z68.42 Body mass index [BMI] 45.0-49.9, adult; E66.01 Morbid (severe) obesity due to excess calories; E78.5 Hyperlipidemia, unspecified; E03.9 Hypothyroidism, unspecified; F32.A Depression, unspecified; I10 Essential (primary) hypertension; E87.70 Fluid overload, unspecified
CPT/HCPCS: 36415; 36600; 71045; 71046; 76376; 80048; 80053; 81001; 82330; 82435; 82803; 82947; 82948; 83036; 83735; 84100; 84132; 84295; 84443; 85008; 85018; 85025; 85347; 85610; 85730; 86885; 86900; 86901; 86920; 87081; 93005; 93312; 93325; 93880; 93970; 94010; 94760; 97116; 97161; 97530; A4333; A4615; A4618; A6213; A6258; A6449; A7000; A7048; C1751; G0378; J0171; J0690; J1250; J1644; J1815; J1940; J2060; J2150; J2270; J2704; J2919; J3370; J3372; J3475; J3480; J3490; J7030; J7040; J7050; J7120; P9016; P9045; P9047